=== PATIENT | female | born 1970 | race Caucasian/White ===

== ENCOUNTER 2023-08-18 09:12 | Outpatient (RCR) | payer OTHER, SELFPAY | END 2023-08-18 23:59 | disposition home or self-care (01) | LOC: RPT 09:12 | PROVIDERS: ATTENDING PHYSICIAN Internal Medicine | DX: S39.012D Strain of muscle, fascia and tendon of lower back, subsequent encounter (principal); S16.1XXD Strain of muscle, fascia and tendon at neck level, subsequent encounter; M17.11 Unilateral primary osteoarthritis, right knee; S83.241D Other tear of medial meniscus, current injury, right knee, subsequent encounter; R26.2 Difficulty in walking, not elsewhere classified; M54.2 Cervicalgia; M54.50 Low back pain, unspecified; M25.561 Pain in right knee | CPT/HCPCS: 97110; 97112; 97140; 97530 ==

== ENCOUNTER 2023-09-27 09:23 | Outpatient (RCR) | payer OTHER, SELFPAY | END 2023-09-27 23:59 | disposition home or self-care (01) | LOC: RPT 09:23 | PROVIDERS: ATTENDING PHYSICIAN Internal Medicine | DX: S39.012D Strain of muscle, fascia and tendon of lower back, subsequent encounter (principal); S16.1XXD Strain of muscle, fascia and tendon at neck level, subsequent encounter; M17.11 Unilateral primary osteoarthritis, right knee; S83.241D Other tear of medial meniscus, current injury, right knee, subsequent encounter; Z73.6 Limitation of activities due to disability; R26.2 Difficulty in walking, not elsewhere classified; M54.2 Cervicalgia; M54.50 Low back pain, unspecified; M25.561 Pain in right knee; M62.81 Muscle weakness (generalized) | CPT/HCPCS: 97110; 97112; 97530 ==

== ENCOUNTER 2023-10-16 10:13 | Outpatient (RCR) | payer OTHER, SELFPAY | END 2023-10-16 23:59 | disposition home or self-care (01) | LOC: RPT 10:13 | PROVIDERS: ATTENDING PHYSICIAN Internal Medicine | DX: S39.012D Strain of muscle, fascia and tendon of lower back, subsequent encounter (principal); S16.1XXD Strain of muscle, fascia and tendon at neck level, subsequent encounter; Z73.6 Limitation of activities due to disability; M25.561 Pain in right knee; V49.60XD Unspecified car occupant injured in collision with unspecified motor vehicles in traffic accident, subsequent encounter | CPT/HCPCS: 97110; 97530 ==

== ENCOUNTER 2023-11-15 09:05 | Outpatient (RCR) | payer OTHER, SELFPAY | END 2023-11-16 07:38 | disposition home or self-care (01) | LOC: RPT 09:05 | PROVIDERS: ATTENDING PHYSICIAN Internal Medicine | DX: S39.012S Strain of muscle, fascia and tendon of lower back, sequela (principal); S16.1XXS Strain of muscle, fascia and tendon at neck level, sequela; S83.241D Other tear of medial meniscus, current injury, right knee, subsequent encounter; M17.11 Unilateral primary osteoarthritis, right knee; R26.2 Difficulty in walking, not elsewhere classified; M54.2 Cervicalgia; M25.561 Pain in right knee | CPT/HCPCS: 97110; 97530 ==

== ENCOUNTER → 2023-12-27 06:28 | Day surgery (SDC) | payer OTHER, SELFPAY | LOC: GI 06:28 | PROVIDERS: ATTENDING PHYSICIAN Surgery | DX: Z12.11 Encounter for screening for malignant neoplasm of colon (principal); K63.5 Polyp of colon; K57.30 Diverticulosis of large intestine without perforation or abscess without bleeding; Z83.719 Family history of colon polyps, unspecified | CPT/HCPCS: 45380; 88305 ==

== ENCOUNTER → 2025-04-30 09:39 | Outpatient (REF) | payer OTHER, SELFPAY | LOC: RAD 09:39 | PROVIDERS: ATTENDING PHYSICIAN Orthopaedic Surgery | DX: M25.511 Pain in right shoulder (principal) | CPT/HCPCS: 76882 ==